=== PATIENT | male | born 1950 | race Two or more races ===

== ENCOUNTER 2021-03-28 18:40 | Inpatient (IN) | payer MEDICARE ==
[~2021-03-28] VITALS: Ht 182.9 cm; Wt 114.8 kg
[2021-03-28 23:50] VITALS: BP 136/89
--- NOTE | 2021-03-28 23:51 | NUR ---
GPS ADMISSION NOTE, RECEIVED PATIENT FROM [facility] PATIENT ARRIVED ON THIS UNIT AT 2351 VIA STRETCHER WITH 2 SENIOR CORPORATE ACCOUNTANT ESCORTS. PATIENT ADMITTED ON A 5150 HOLD FOR DTS. PER HOLD PATIENT FEELS HOPELESS AND DEPRESSED. PATIENT WANTED TO KILL HIM SELF BY DROWNING IN THE OCEAN. THE 5150 WAS REVIEWED AND THE DOCUMENTATION IN THE 5150 HOLD APPEARS TO REFLECT THE PRESENTATION OF THE PATIENT. UPON FACE TO FACE ASSESSMENT PATIENT IS NOTED TO BEING DEPRESSES, DISHEVELED, AND COOPERATIVE. PATIENT IS CURRENTLY LYING IN BED AWAKE, HAS NO S/S OR COMPLAINTS OF PAIN. PATIENT IS DISPLAYING NO S/S OF APPARENT DISTRESS. PATIENT BREATHING IS UNLABORED WITH EQUAL RISE AND FALL OF THE CHEST. PATIENT IS ALERT AND ORIENTATED X 3 ON ROOM AIR. PATIENT ASSISTED WITH TURNING AND REPOSITIONING Q2HR AND PRN FOR COMFORT AND CIRCULATION. PATIENT HAS NO NEEDS AT THIS TIME. PATIENT DENIES SUICIDE IDEATIONS AND HOMICIDAL IDEATIONS AT THIS TIME. PATIENT REFUSED TO SIGNS ANY PAPER WORK. PATIENT ADVISED OF HIS HOLD AND PATIENT RIGHTS BOOKLET GIVEN. PATIENT IS UNDER THE PSYCHIATRIC CARE OF DR. ESPINOZA AND THE MEDICAL CARE OF DR SUAREZ. PATIENT BELONGINGS WERE INVENTORIED AND CHECKED FOR CONTRABAND. ALL CONTRABAND REMOVED AND STORED IN PATIENT HALLWAY LOCKER. PATIENT ADVANCED DIRECTIVES PREFERENCE, IMMUNIZATIONS QUESTIONER, NECESSARY PAPERWORK COMPLETED. PATIENT SKIN ASSESSMENT DONE. PATIENT ORIENTATED TO ROOM, FLOOR, AND STAFF WITH ALL QUESTIONS ANSWERED. PATIENT EDUCATED ON THE USE OF THE CALL BROOKS. PATIENT BED SIDE RAILS ARE UP X 2 FOR SAFETY. PATIENT BED IS LOCKED, LOW AND I WILL CONTINUE TO MONITOR THIS PATIENT Q 15 MIN WITH THE HELP OF STAFF TO MAINTAIN SAFETY.
[2021-03-29] MEDS ORDERED: MAGNESIUM HYDROXIDE 30 ML UDC PO PRN (00:30)
[2021-03-29] MEDS ORDERED: MAG HYDROX/AL HYDROX/SIMETH 30 ML UDC PO PRN (00:30)
[2021-03-29] MEDS ORDERED: BLOOD SUGAR DIAGNOSTIC 1 EACH STRIP IN ONE (01:00)
[2021-03-29] MEDS ORDERED: LORA-259 PO (01:43)
[2021-03-29] MEDS ORDERED: CLIN60LO2 TP (01:45)
[2021-03-29] MEDS ORDERED: AMOX500C2 PO (01:47)
[2021-03-29] MEDS ORDERED: OLAN10TA3 PO (01:49)
[2021-03-29] MEDS ORDERED: MIRT-90 PO (01:51)
[2021-03-29] MEDS ORDERED: VENL75CA62 PO (01:52)
[2021-03-29] MEDS ORDERED: FLUV50TA3 PO (01:53)
[2021-03-29] MEDS ORDERED: CLON0.1T PO (02:01)
[2021-03-29 08:00] VITALS: BP 153/86
--- NOTE | 2021-03-29 09:14 | NUR ---
SALLIE Initial Discharge: Patient is currently homeless and lives in [place]. Pt is unable to state where he wants to go. Pt does not want his ex- Riddhi ([phone]) to be contacted. SALLIE will work with the MD and pt to coordinate appropriate discharge.
--- NOTE | 2021-03-29 09:15 | NUR ---
SW NOTE: Pt does not want his ex- Riddhi ([phone]) to be contacted and pt is alert and oriented x3.
[2021-03-29] MEDS: LORAZEPAM 1 MG TABLET PO PRN (09:49)
--- NOTE | 2021-03-29 09:49 | NUR ---
ATIVAN 1MG GIVEN PATIENT COMPLAINS OF ANXIETY. WILL CONTINUE TO MONITOR
--- NOTE | 2021-03-29 10:06 | NUR ---
DR MURPHY SAW PT IN AM. DR MURPHY WAS REMINDED TO RECONCILE PATIENT'S MEDS THIS AM.
--- NOTE | 2021-03-29 13:46 | NUR ---
Family Contact: Pt provided son's number Piyush ([phone]) and left a detailed voicemail to return back this phone call.
--- NOTE | 2021-03-29 14:01 | NUR ---
[facility]: SW contacted [facility] and spoke with nurse Sebastian ([phone]) who stated that they do not have any contact information about pt.
--- NOTE | 2021-03-29 14:03 | NUR ---
[employer]: SW found a number to [employer] ([phone]) and left a voicemail to contact this SW.
[2021-03-29] MEDS: ESCITALOPRAM OXALATE (10 MG) 10 MG TABLET PO SCH (14:48)
[2021-03-29 16:00] VITALS: BP 153/73
[2021-03-29 20:10] VITALS: BP 149/89
[2021-03-30] MEDS: LORAZEPAM 1 MG TABLET PO PRN ×3 (03:36→18:07)
--- NOTE | 2021-03-30 03:38 | NUR ---
GPS RN NOTE, PATIENT HAS A COMPLAINT OF FEELING ANXIOUS AND IS REQUESTING ATIVAN AT THIS TIME. PATIENT VITAL SIGNS ARE STABLE. GAVE ATIVAN 1MG PO Q6HR PRN ORDERED. WILL REASSESS FOR ANXIETY AND I WILL CONTINUE TO MONITOR THIS PATIENT WITH THE HELP OF STAFF.
[2021-03-30 06:59] LABS: BASOPHILS % (AUTO) 0.3 % (0.0-2.0); EOSINOPHILS % (AUTO) 3.7 % (0.0-6.0); HEMATOCRIT 39 % (39-51); HEMOGLOBIN 12.9 g/dL (13.5-17.5); LYMPHOCYTES # (AUTO) 0.9 K/uL (0.8-4.8); LYMPHOCYTES % (AUTO) 14.9 % (20.0-44.0); MEAN CORPUSCULAR HGB CONC 33 g/dl (31.0-36.0); MEAN CORPUSCULAR VOLUME 83 fL (80-96); MONOCYTES # (AUTO) 0.5 K/uL (0.1-1.30); MONOCYTES % (AUTO) 8.1 % (2.0-12.0); NEUTROPHILS # (AUTO) 4.3 K/uL (1.8-8.9); PLATELET COUNT (AUTO) 101 K/uL (150-450); RED BLOOD CELL COUNT(AUTO) 4.69 MIL/uL (4.5-6.0); WHITE BLOOD COUNT (AUTO) 5.9 K/uL (4.3-11.0)
[2021-03-30 07:28] LABS: ALBUMIN 3.8 g/dL (3.4-5.0); BILIRUBIN,TOTAL 0.9 mg/dL (0.2-1.0); CALCIUM, SERUM 8.4 mg/dL (8.5-10.1); CREATININE 0.8 mg/dL (0.6-1.3); MAGNESIUM 2.2 mg/dL (1.8-2.4); PHOSPHORUS 2.9 mg/dL (2.5-4.9); POTASSIUM 4.2 mmol/L (3.5-5.1); TOTAL PROTEIN, SERUM 7.2 g/dL (6.4-8.2)
[2021-03-30 07:30] LABS: CHOLESTEROL 173 mg/dL (<200); HDL CHOLESTEROL 39 mg/dL (40-60); LDL 115 mg/dL (0-99); TRIGLYCERIDES 97 mg/dL (30-150)
[2021-03-30 07:35] LABS: THYROID STIMULATING HORMONE 1.299 uIU/mL (0.358-3.74)
[2021-03-30 08:00] VITALS: BP 144/94
[2021-03-30] MEDS: ESCITALOPRAM OXALATE (10 MG) 10 MG TABLET PO SCH (08:24)
--- NOTE | 2021-03-30 08:38 | NUR ---
WOUND CARE CONSULT: PT DENIES NEED FOR WOUND CONSULT. ADMISSION PHOTOS INDICATE SPOTS ON ABDOMEN. PT DENIES ANY ITCHING OR DISCOMFORT. PT IS AMBULATORY. WILL SEE PRN.
[2021-03-30] MEDS ORDERED: AMOXICILLIN TRIHYDRATE 500 MG CAPSULE PO SCH (13:00)
--- NOTE | 2021-03-30 13:46 | NUR ---
Individual Therapy: SW met with patient to conduct brief therapy on patient's presenting problem depressed mood. Patient does appear with low mood. Patient was fixated on discharge and wants to leave to [place]. Pt unable to have a proper conversation. SW unable to conduct proper therapy at this time.
--- NOTE | 2021-03-30 14:03 | NUR ---
SALLIE Family Contact: SALLIE attempted to contact pt's son Piysuh ([phone]) and left a detailed voicemail to return back this SALLIE phone call.
[2021-03-30] MEDS: AMOXICILLIN TRIHYDRATE 250 MG CAPSULE PO SCH ×2 (15:00→17:12)
[2021-03-30 16:00] VITALS: BP 151/88
[2021-03-30] MEDS ORDERED: CLONIDINE HCL 0.1 MG TABLET PO PRN (17:00)
[2021-03-30] MEDS ORDERED: CLINDAMYCIN PHOSPHATE-T 60 ML BOTTLE TP SCH (17:00)
[2021-03-30 20:01] VITALS: BP 141/59
[2021-03-30] MEDS: ZOLPIDEM TARTRATE 5 MG TABLET PO PRN (20:39)
[2021-03-31] MEDS: LORAZEPAM 1 MG TABLET PO PRN ×3 (04:50→18:29)
[2021-03-31 08:00] VITALS: BP 124/80
[2021-03-31] MEDS: ESCITALOPRAM OXALATE (10 MG) 10 MG TABLET PO SCH (08:09)
[2021-03-31] MEDS: AMOXICILLIN TRIHYDRATE 250 MG CAPSULE PO SCH ×3 (08:09→16:06)
[2021-03-31] MEDS ORDERED: AMOXICILLIN TRIHYDRATE 250 MG CAPSULE ONE (12:14)
--- NOTE | 2021-03-31 12:16 | NUR ---
RN NOTES AMOXICILLIN 500MG 2 TABS OBTAINED FROM ANOTHER OMNICELL.
[2021-03-31 16:00] VITALS: BP 143/83
[2021-03-31 19:53] VITALS: BP 128/70
[2021-03-31 19:55] VITALS: BP 128/70
[2021-04-01] MEDS: LORAZEPAM 1 MG TABLET PO PRN ×3 (04:41→21:23)
--- NOTE | 2021-04-01 04:52 | NUR ---
RN NOTE: ANXIETY PATIENT IS AWAKE & VERBALIZED OF BEING ANXIOUS & RESTLESS. PATIENT REQUESTED TO TAKE ATIVAN AT THIS TIME. PRN ATIVAN 2 MG PO ADMINISTERED ORDERED. WILL CONTINUE TO MONITOR.
[2021-04-01 08:00] VITALS: BP 136/76
[2021-04-01] MEDS: ESCITALOPRAM OXALATE (10 MG) 10 MG TABLET PO SCH (08:22)
[2021-04-01 16:00] VITALS: BP 150/87
[2021-04-01 19:56] VITALS: BP 137/78
[2021-04-01 20:00] VITALS: BP 137/78
--- NOTE | 2021-04-01 21:24 | NUR ---
RN NOTE: ANXIETY PATIENT IS VERBALIZED OF BEING ANXIOUS & RESTLESS. PATIENT REQUESTED TO TAKE ATIVAN AT THIS TIME. PRN ATIVAN 2 MG PO ADMINISTERED ORDERED. WILL CONTINUE TO MONITOR.
[2021-04-02] MEDS: LORAZEPAM 1 MG TABLET PO PRN ×2 (05:23→17:33)
[2021-04-02] MEDS: ACETAMINOPHEN 325 MG TABLET PO PRN (06:08)
[2021-04-02 08:00] VITALS: BP 128/62
[2021-04-02] MEDS: ESCITALOPRAM OXALATE (10 MG) 10 MG TABLET PO SCH (08:09)
--- NOTE | 2021-04-02 11:03 | NUR ---
Court Hearing: Patient's court hearing for 5250 was today and it was upheld for danger to self and GD.
--- NOTE | 2021-04-02 11:07 | NUR ---
SNF Referral: SALLIE sent clinicals for placement to Ingrid from [facility] ([phone]) for placement option.
[2021-04-02] MEDS ORDERED: OLANZAPINE 10 MG VIAL IM STA (13:04)
--- NOTE | 2021-04-02 13:10 | NUR ---
RN-CO: Patient noted, had a cut on his left wrist, and a bump on his head. " He stated I cannot bear the fire anymore." When I asked him what is the fire he said it is an emotional fire. First aid was done, called Dr Hutchison for an order and MD ordered 1:1 for sitter due to pt is actively suicidal. Zyprexa 10 mg IM STAT was also ordered, noted and carried out. We will continue to monitor closely and encourage him to ventilate his feelings.
[2021-04-02 16:00] VITALS: BP 120/59
--- NOTE | 2021-04-02 16:20 | NUR ---
SNF Referral/Contact: SW sent referrals to [facility] ([phone]) and they stated they are unable to accept pt due to behavioral issues.
--- NOTE | 2021-04-02 17:33 | NUR ---
RN NOTE: ANXIETY PT C/O INCREASING ANXIETY. REQUESTING ATIVAN PO PRN. ATIVAN 2MG PO PRN ADMINISTERED
[2021-04-02 20:08] VITALS: BP 111/65
[2021-04-03] MEDS: LORAZEPAM 1 MG TABLET PO PRN ×2 (05:16→17:38)
[2021-04-03 05:52] VITALS: BP 111/65
[2021-04-03 08:00] VITALS: BP 149/88
--- NOTE | 2021-04-03 08:41 | NUR ---
SALLIE Family Contact: SW received a call from patient's son Piyush this morning 04/03/21 and he left a voicemail stating that for the time being pt can go live with him.
--- NOTE | 2021-04-03 08:47 | NUR ---
SW Note: SW spoke with pt in regards to pt's son Piyush contacting the Hospital and leaving a voicemail. SW explained that this SW would have to confirm with son for more information. Pt was agreeable with this.
--- NOTE | 2021-04-03 08:48 | NUR ---
SALLIE Family Contact: SALLIE contacted pt's son Piyush ([phone]) and left a detailed voicemail to return. SW stated to leave detailed voicemail.
[2021-04-03] MEDS ORDERED: ESCITALOPRAM OXALATE (10 MG) 10 MG TABLET PO SCH (09:00)
--- NOTE | 2021-04-03 10:20 | NUR ---
WRIT: Pt contacted court and withdraw his writ hearing scheduled 04/04. Britney from the court ([phone]) interviewed pt and he wanted to cancel.
[2021-04-03] MEDS: SERTRALINE HCL 50 MG TABLET PO SCH (11:17)
[2021-04-03] MEDS: hydrOXYzine PAMOATE 25 MG CAPSULE PO PRN ×2 (11:17→21:25)
--- NOTE | 2021-04-03 11:17 | NUR ---
RN NOTE: ANXIETY PT EXHIBITING INCREASED ANXIETY. MEDICATED WITH VISTARIL PO PRN
[2021-04-03 16:00] VITALS: BP 145/74
--- NOTE | 2021-04-03 17:39 | NUR ---
RN NOTE: ANXIETY PT C/O INCREASING ANXIETY. REQUESTING ATIVAN 2MG PO PRN. ATIVAN 2MG PO PRN ADMINISTERED
[2021-04-03 20:37] VITALS: BP 125/57
--- NOTE | 2021-04-03 21:28 | NUR ---
Pt c/o anxiety. Least restrictive measures ineffective. Vistaril 25 mg 1 cap po prn given as ordered. Will continue to monitor.
[2021-04-03] MEDS: ZOLPIDEM TARTRATE 5 MG TABLET PO PRN (22:27)
--- NOTE | 2021-04-03 22:28 | NUR ---
Post 1 hr Vestaril effective. Pt calm. Pt c/o insomnia. Least restrictive measures ineffective. Ambien 5 mg 1 tab po prn given as ordered. Will continue to monitor
--- NOTE | 2021-04-03 23:30 | NUR ---
Post 1 hr Ambien effective. Pt asleep in bed easy to arouse. Compliant with care and no episodes of agitation or trying to harm self during shift. Denies any plans to harm self at present moment. 1:1 sitter by bedside at all times. Will continue to monitor. Will endorse to next shift.
[2021-04-04] MEDS: LORAZEPAM 1 MG TABLET PO PRN ×2 (05:42→17:27)
--- NOTE | 2021-04-04 05:44 | NUR ---
Pt c/o anxiety. Least restrictive measures ineffective. Ativan 2 mg po prn given as ordered. Will continue to monitor.
--- NOTE | 2021-04-04 06:49 | NUR ---
Post 1 hr Ativan effective. Pt calm and asleep in bed easy to arouse. Will continue to monitor. Will endorse to next shift.
[2021-04-04 08:00] VITALS: BP 124/59
[2021-04-04] MEDS: SERTRALINE HCL 50 MG TABLET PO SCH (09:30)
[2021-04-04] MEDS: hydrOXYzine PAMOATE 25 MG CAPSULE PO PRN ×2 (10:52→22:46)
[2021-04-04] MEDS: GABAPENTIN 100 MG CAPSULE PO SCH ×3 (11:00→17:26)
--- NOTE | 2021-04-04 11:16 | NUR ---
given vistaril 25 mg for nerves.
--- NOTE | 2021-04-04 13:06 | NUR ---
SALLIE Family Contact: SALLIE contacted pt's son Piyush ([phone]) and left a detailed voicemail to return call back.
--- NOTE | 2021-04-04 13:44 | NUR ---
SALLIE Family Contact: SW received a call from patient's son Piyush ([phone]) who stated that he has bad service. He stated this SW can call his work place ([phone]). Son stated upon dc pt can live with him located at [address] [place] [address]. Son stated that pt lost his apartment last year and went to live in [place], he is unsure if he was homeless or lost his apartment at [place]. Son was unable to give information because he was unsure. He stated upon discharge he can pick pt up in the evening around 8PM.
[2021-04-04 16:00] VITALS: BP 140/86
--- NOTE | 2021-04-04 17:29 | NUR ---
GIVEN ATIVAN 2 MG FOR NERVOUSNESS.
[2021-04-04 20:00] VITALS: BP 103/55
--- NOTE | 2021-04-04 21:43 | NUR ---
GPS RN NOTE, RECEIVED PATIENT AWAKE AND IN BED, NO S/S OR COMPLAINTS OF PAIN AT THIS TIME. PATIENT IS DISPLAYING NO S/S OF APPARENT DISTRESS AT THIS TIME. PATIENT BREATHING IS UNLABORED WITH EQUAL RISE AND FALL OF THE CHEST. PATIENT IS ALERT AND ORIENTED X 3 ON ROOM AIR WITH A SPO2 97%. PATIENT IS COMPLIANT WITH MEDICATIONS, ANXIOUS AT TIMES, PACING, DEMANDING, AND COOPERATIVE. PATIENT HAS A 1 TO 1 SITTER FOR SUICIDAL IDEATIONS. PATIENT EDUCATED ON THE USE OF THE CALL BROOKS. PATIENT BED SIDE RAILS UP X 2 FOR SAFETY. PATIENT BED IS LOCKED, LOW, WITH BED ALARM ON. WILL CONTINUE TO MONITOR THIS PATIENT Q15 MINUTES WITH THE HELP OF STAFF TO MAINTAIN SAFETY.
[2021-04-04] MEDS: ZOLPIDEM TARTRATE 5 MG TABLET PO PRN (22:46)
--- NOTE | 2021-04-04 22:46 | NUR ---
GPS RN NOTE, PATIENT HAS A COMPLAINT OF NOT BEING ABLE TO SLEEP AND IS REQUESTING AMBIEN AT THIS TIME. PATIENT VITAL SIGNS ARE STABLE. GAVE AMBIEN 5MG PO HS PRN ORDERED. WILL REASSESS FOR INSOMNIA AND I WILL CONTINUE TO MONITOR THIS PATIENT WITH THE HELP OF STAFF.
--- NOTE | 2021-04-04 22:48 | NUR ---
GPS RN NOTE, PATIENT HAS A COMPLAINT OF FEELING ANXIOUS AND IS REQUESTING VISTARIL AT THIS TIME. PATIENT VITAL SIGNS ARE STABLE. GAVE VISTARIL 25MG PO Q8HR PRN ORDERED. WILL REASSESS FOR ANXIETY AND I WILL CONTINUE TO MONITOR THIS PATIENT WITH THE HELP OF STAFF.
[2021-04-05] MEDS: LORAZEPAM 1 MG TABLET PO PRN ×2 (05:30→17:21)
--- NOTE | 2021-04-05 05:32 | NUR ---
GPS RN NOTE, PATIENT HAS A COMPLAINT OF FEELING ANXIOUS AND IS REQUESTING ATIVAN. PATIENT VITAL SIGNS ARE STABLE. GAVE ATIVAN 2MG PO Q12HR PRN ORDERED. WILL REASSESS FOR ANXIETY AND I WILL CONTINUE TO MONITOR THIS PATIENT WITH THE HELP OF STAFF.
[2021-04-05 08:00] VITALS: BP 119/69
[2021-04-05] MEDS: GABAPENTIN 100 MG CAPSULE PO SCH ×3 (08:05→16:22)
[2021-04-05] MEDS: SERTRALINE HCL 50 MG TABLET PO SCH (08:05)
[2021-04-05] MEDS: hydrOXYzine PAMOATE 25 MG CAPSULE PO PRN ×2 (08:41→16:22)
--- NOTE | 2021-04-05 08:41 | NUR ---
RN NOTE- C/O ANXIETY./ VISTARIL 25 MG ADMINISTERED
--- NOTE | 2021-04-05 09:00 | NUR ---
RN NOTE- PT VSS ALERT BLUNTED AFFECT, INTERACTIVE CALM MED COMPLIANT COOPERATIVE NEEDS ATTENDED
--- NOTE | 2021-04-05 11:45 | NUR ---
SALLIE Family Contact: SALLIE spoke with patient's son Piyush ([phone]) who stated that he will pick pt up at 7:30pm on April 10. Discharge confirmed.
--- NOTE | 2021-04-05 13:07 | NUR ---
SALLIE Coordination of Care: Patient has an intake evaluation with (Psychiatrist) Dr. Arriaga [address], [place] [address]; ([phone]) via telehealth on May 08 at 4:20PM scheduled by officer of the day.
--- NOTE | 2021-04-05 13:41 | NUR ---
SALLIE Coordination of Care: Patient will follow up with (Information And Referral Director) Dr. Jerry located at [facility], [address] [address]; ([phone]) on April 12 at 10:30AM. Addendum: 04/05/21 at 1342 by SALLIE GUTIERREZ SALLIE faxed clinicals to the office (F:[phone])
[2021-04-05 16:00] VITALS: BP 126/67
--- NOTE | 2021-04-05 16:22 | NUR ---
RN NOTE- ANXIETY NOTED. VISTARIL 25 MG ADMINISTERED
[2021-04-05 20:00] VITALS: BP 112/61
[2021-04-05 20:05] VITALS: BP 112/61
[2021-04-05 22:00] VITALS: BP 112/61
[2021-04-05] MEDS: ZOLPIDEM TARTRATE 5 MG TABLET PO PRN (22:34)
--- NOTE | 2021-04-05 22:35 | NUR ---
RN NOTE: INSOMNIA PATIENT VERBALIZED INABILITY TO SLEEP & REQUESTED TO TAKE AMBIEN. PRN AMBIEN 5 MG 1 TAB PO ADMINISTERED.
[2021-04-06] MEDS: LORAZEPAM 1 MG TABLET PO PRN (05:22)
--- NOTE | 2021-04-06 07:37 | NUR ---
GPS-RN NOTES: PATIENT IS CONTRACTED FOR SAFETY PER DR. ESPINOZA TO DISCONTINUE 1:1 SITTER ORDER. WILL ENDORSE TO AM SHIFT NURSE.
[2021-04-06] MEDS: SERTRALINE HCL 50 MG TABLET PO SCH (08:12)
[2021-04-06] MEDS: hydrOXYzine PAMOATE 25 MG CAPSULE PO PRN ×2 (08:12→15:01)
[2021-04-06] MEDS: GABAPENTIN 100 MG CAPSULE PO SCH ×3 (08:12→16:51)
--- NOTE | 2021-04-06 09:00 | NUR ---
RN NOTE- NO CHANGE PT VSS ALERT BLUNTED AFFECT, INTERACTIVE CALM MED COMPLIANT COOPERATIVE NEEDS ATTENDED
[2021-04-06 09:57] VITALS: BP 180/76
--- NOTE | 2021-04-06 15:02 | NUR ---
RN NOTE- PT INCREASING ANXIETY. ATIVAN DOSE DECREASED BY DR ESPINOZA,. NO RX TO GIVE UNTIL [address] ESPINOZA ORDERED VISTARIL 25 MG PO X ONE DOSE NOW
[2021-04-06 20:27] VITALS: BP 125/73
[2021-04-06] MEDS: ZOLPIDEM TARTRATE 5 MG TABLET PO PRN (21:41)
--- NOTE | 2021-04-06 21:44 | NUR ---
RN NOTE: INSOMNIA PATIENT VERBALIZED INABILITY TO SLEEP & REQUESTED TO TAKE AMBIEN. PRN AMBIEN 5 MG 1 TAB PO ADMINISTERED.
[2021-04-07] MEDS: LORAZEPAM 1 MG TABLET PO PRN ×2 (03:11→17:52)
--- NOTE | 2021-04-07 03:15 | NUR ---
RN NOTE: ANXIETY PATIENT IS AWAKE & VERBALIZED OF BEING ANXIOUS & RESTLESS. PATIENT REQUESTED TO TAKE ATIVAN AT THIS TIME. PRN ATIVAN 1 MG PO ADMINISTERED ORDERED. WILL CONTINUE TO MONITOR.
[2021-04-07] MEDS: hydrOXYzine PAMOATE 25 MG CAPSULE PO PRN (06:41)
--- NOTE | 2021-04-07 06:41 | NUR ---
RN NOTE: ANXIETY PT WAS PACING UP AND DOWN THE HALLWAY AND STATED THAT HE WAS ANXIOUS. PER PT REQUEST, ADMINISTERED VISTARIL 25MG PO PRN PER ORDER. WILL CONTINUE TO MONITOR PT CLOSELY.
[2021-04-07 08:00] VITALS: BP 141/68
[2021-04-07] MEDS: SERTRALINE HCL 50 MG TABLET PO SCH (08:50)
[2021-04-07] MEDS: GABAPENTIN 100 MG CAPSULE PO SCH ×3 (08:50→17:52)
--- NOTE | 2021-04-07 11:42 | NUR ---
GIVEN VISTARIL FOR NERVES.
[2021-04-07] MEDS ORDERED: hydrOXYzine PAMOATE 25 MG CAPSULE PO ONE (12:00)
[2021-04-07 16:00] VITALS: BP 138/82
[2021-04-07 19:36] VITALS: BP 123/82
[2021-04-07] MEDS: ZOLPIDEM TARTRATE 5 MG TABLET PO PRN (21:51)
--- NOTE | 2021-04-07 21:52 | NUR ---
RN NOTE: INSOMNIA PATIENT C/O UNABLE TO SLEEP & REQUESTED TO TAKE SLEEPING MEDICINE. PRN AMBIEN 5 MG PO ADMINISTERED. WILL CONTINUE TO MONITOR.
[2021-04-08] MEDS: ACETAMINOPHEN 325 MG TABLET PO PRN (05:20)
[2021-04-08] MEDS: LORAZEPAM 1 MG TABLET PO PRN ×2 (06:08→19:38)
--- NOTE | 2021-04-08 06:09 | NUR ---
RN NOTES: ANXIETY PATIENT C/O ANXIOUS & RESTLESS.PACING IN THE HALLWAY, PATIENT REQUESTED TO TAKE ATIVAN AT THIS TIME. PRN ATIVAN 1 MG PO ADMINISTERED ORDERED. WILL CONTINUE TO MONITOR.
[2021-04-08 08:00] VITALS: BP 145/81
[2021-04-08] MEDS: GABAPENTIN 100 MG CAPSULE PO SCH ×3 (08:45→16:13)
[2021-04-08] MEDS: SERTRALINE HCL 50 MG TABLET PO SCH (08:45)
[2021-04-08] MEDS: hydrOXYzine PAMOATE 25 MG CAPSULE PO PRN ×2 (09:29→17:44)
--- NOTE | 2021-04-08 09:32 | NUR ---
RN-CO: VISTARIL GIVEN FOR C/O ANXIETY.
[2021-04-08 16:00] VITALS: BP 128/78
--- NOTE | 2021-04-08 19:40 | NUR ---
RN NOTES : ANXIETY PATIENT C/O ANXIOUS & RESTLESS, PATIENT REQUESTED TO TAKE ATIVAN AT THIS TIME. PRN ATIVAN 1 MG PO ADMINISTERED ORDERED. WILL CONTINUE TO MONITOR.
[2021-04-08 21:00] VITALS: BP 132/74
[2021-04-08] MEDS: ZOLPIDEM TARTRATE 5 MG TABLET PO PRN (21:47)
--- NOTE | 2021-04-08 21:48 | NUR ---
RN NOTE: INSOMNIA PATIENT C/O UNABLE TO SLEEP & REQUESTED TO TAKE SLEEPING MEDICINE. PRN AMBIEN 5 MG PO ADMINISTERED. WILL CONTINUE TO MONITOR.
[2021-04-09] MEDS: hydrOXYzine PAMOATE 25 MG CAPSULE PO PRN ×2 (04:33→13:46)
[2021-04-09 08:00] VITALS: BP 143/84
[2021-04-09] MEDS: GABAPENTIN 100 MG CAPSULE PO SCH ×3 (08:03→16:02)
[2021-04-09] MEDS: LORAZEPAM 1 MG TABLET PO PRN (08:04)
[2021-04-09] MEDS: SERTRALINE HCL 50 MG TABLET PO SCH (08:04)
--- NOTE | 2021-04-09 08:04 | NUR ---
RN NOTES : ANXIETY PATIENT C/O ANXIOUS & RESTLESS, PATIENT REQUESTED ATIVAN AT THIS TIME. PRN ATIVAN 1 MG PO ADMINISTERED ORDERED. WILL CONTINUE TO MONITOR.
[2021-04-09 16:00] VITALS: BP 119/57
[2021-04-09 20:00] VITALS: BP 131/74
[2021-04-09 20:15] VITALS: BP 131/74
[2021-04-09] MEDS: ZOLPIDEM TARTRATE 5 MG TABLET PO PRN (21:51)
--- NOTE | 2021-04-09 21:52 | NUR ---
RN NOTE: INSOMNIA PATIENT VERBALIZED INABILITY TO SLEEP & REQUESTED TO TAKE AMBIEN. PRN AMBIEN 5 MG 1 TAB PO ADMINISTERED.
[2021-04-10] MEDS: LORAZEPAM 1 MG TABLET PO PRN ×2 (01:56→16:40)
--- NOTE | 2021-04-10 01:58 | NUR ---
RN NOTE: ANXIETY PATIENT IS WOKE UP & VERBALIZED OF BEING ANXIOUS & RESTLESS. PATIENT REQUESTED TO TAKE ATIVAN AT THIS TIME. PRN ATIVAN 1 MG PO ADMINISTERED ORDERED. WILL CONTINUE TO MONITOR.
[2021-04-10] MEDS: hydrOXYzine PAMOATE 25 MG CAPSULE PO PRN (05:37)
--- NOTE | 2021-04-10 05:39 | NUR ---
RN NOTE: ANXIETY PT WAS PACING IN HIS ROOM AND STATED THAT HE WAS ANXIOUS. PER PT REQUEST, ADMINISTERED VISTARIL 50MG PO PRN PER ORDER. WILL CONTINUE TO MONITOR THE PATIENT CLOSELY.
[2021-04-10 08:00] VITALS: BP 106/69
--- NOTE | 2021-04-10 08:15 | NUR ---
SW Discharge Note: Patient will be discharged to his sons house located at [address] [place] [address]. Patients son Piyush ([phone]) will product picker pt at 7:30PM. Patient is alert and oriented x3. Patient denies suicidal or homicidal ideation. Patient denies visual/auditory hallucinations. Patient will follow up with (Pediatric Dentist) Dr. Jerry located at The [address] [address]; ([phone]) on April 12 at 10:30AM. Patient has an intake evaluation with (Psychiatrist) Dr. Arriaga [address] [place] [address]; ([phone]) via telehealth on May 08 at 4:20PM. Patient presents with euthymic mood and congruent affect. Patient signed the homeless waiver upon discharge and a copy was placed in the chart. Homeless resources were provided and include [address] information line for shelters and homeless resources. A copy of all resources given to patient was also placed in the chart.
[2021-04-10] MEDS: GABAPENTIN 100 MG CAPSULE PO SCH ×3 (08:21→16:40)
[2021-04-10] MEDS: SERTRALINE HCL 50 MG TABLET PO SCH (08:21)
[2021-04-10 16:00] VITALS: BP 132/78
[2021-04-10] MEDS: ACETAMINOPHEN 325 MG TABLET PO PRN (16:40)
--- NOTE | 2021-04-10 19:15 | NUR ---
RN NOTE RECEIVED PATIENT RESTING IN HIS ROOM & WAITING FOR HIS SON TO PICK HIM UP. PATIENT IS CALM AND COOPERATIVE, DENIES SI/HI OR ANY HALLUCINATIONS, CONTRACTS FOR SAFETY. NO BEHAVIOR EPISODE OR ANY OTHER ACUTE CHANGES NOTED AT THIS TIME. WILL CONTINUE TO MONITOR.
--- NOTE | 2021-04-10 19:54 | NUR ---
GPS GASOLINE PUMP MECHANIC NOTE Patient was discharged to his sons house. Patients son Piyush ([phone]) picked up the patient at 1950. Patient is alert and oriented x 3. Patient denies suicidal or homicidal ideation and contracted for safety. Patient denies visual/auditory hallucinations. Patient was instructed to visit his PCP and Psychiatrist outpatient, patient verbalized understanding. Patient's vital signs are stable. All discharge instructions and paper work was given to the patient at the time of discharge. All belongings were handed over to the patient & patient signed the inventory list after checking the belongings. Patient was calm and cooperative, verbalized understanding of all discharge instructions. Patient was escorted to the lobby to his son by 2 nurses in stable condition.
[2021-04-10 20:12] VITALS: BP 152/88
== END 2021-04-10 20:18 | disposition home or self-care (01) | DRG 885 ==
LOC: GPS 23:38
PROVIDERS: ADMIT Psychiatry & Neurology Psychiatry
DX: F33.3 Major depressive disorder, recurrent, severe with psychotic symptoms (principal); R45.851 Suicidal ideations; F41.9 Anxiety disorder, unspecified; G25.3 Myoclonus; M79.7 Fibromyalgia; K04.7 Periapical abscess without sinus; Z86.19 Personal history of other infectious and parasitic diseases
CPT/HCPCS: 36415; 80053-TC; 80061-TC; 82962-TC; 83735-TC; 84100-TC; 84443-TC; 85025-TC; 87081-TC; J3490; Q0177